=== PATIENT | male | born 1990 | race Caucasian/White ===

== ENCOUNTER 2022-06-18 09:24 | Emergency (ER) | payer BC ==
[~2022-06-18] VITALS: Ht 177.8 cm; Wt 71.2 kg
[2022-06-18 09:36] VITALS: BP_SYST 110
--- NOTE | 2022-06-18 09:42 | NUR ---
PT STATES "I PROBABLY SPRAINED MY LEFT ANKLE". STATES HE LOST HIS FOOTING AND TRIPPED ON ROOT, AND HEARD "POP". UNABLE TO BEAR WEIGHT. STATES INJURY OCCURED YESTERDAY. COMFORT MEASURES AND SUPPORTIVE CARE INITIATED. ICE PACK PROVIDED. PREP FOR ERMD EVAL. ESCORTED TO TX AREA ROOM-5. ICE PACK PROVIDED
--- NOTE | 2022-06-18 09:45 | NUR ---
ER at bedside examining patient.
[2022-06-18] MEDS ORDERED: IBUP-1971 PO (10:47)
[2022-06-18 10:58] VITALS: BP_SYST 138
--- NOTE | 2022-06-18 11:06 | NUR ---
Stable VSS Minimal pain Instructed on crutch use MD has reassessed and Dc'd home To exit
== END 2022-06-18 11:06 | disposition home or self-care (01) ==
LOC: SED 09:24
DX: S93.402A Sprain of unspecified ligament of left ankle, initial encounter (principal); Z79.899 Other long term (current) drug therapy; W01.0XXA Fall on same level from slipping, tripping and stumbling without subsequent striking against object, initial encounter; Y93.89 Activity, other specified; Y92.89 Other specified places as the place of occurrence of the external cause; Y99.8 Other external cause status
CPT/HCPCS: 99283